=== PATIENT | female | born 1950 | race Caucasian/White ===

== ENCOUNTER 2017-01-31 13:13 | Emergency (ER) | payer OTHER ==
[~2017-01-31] VITALS: Ht 157.5 cm; Wt 89.0 kg
[~2017-01-31 13:13] MED LIST: ASPI81TA82 PO; ATOR20TA PO; CLON.1 PO; LISI-586 PO; METO50CR PO; PLAV75TA PO
[2017-01-31 13:17] VITALS: BP 226/100; PULSE 99; RESP 24; TEMP 97.9; O2SAT 96
--- NOTE | 2017-01-31 13:24 | PD ---
Physical Exam Time Seen by Provider: 13:22 Narrative 66yo F c/o elevated BP, chest pain, and SOB that started this morning. Patient seen in triage. VS reviewed. Awaiting bed placement. Data Data Last Documented VS Vital Signs Date Time Temp Pulse Resp B/P Pulse Ox O2 Delivery O2 Flow Rate FiO2 01/31/17 13:17 97.9 99 24 226/100 96 Room Air [facility] Supervised Visit with ERICK: Lucila Be January 31, 2017 13:24
[2017-01-31] MEDS ORDERED: SODIUM CHLORIDE 0.9% FLUSH 10 ML FLUSH IVF PRN (14:00)
--- NOTE | 2017-01-31 14:07 | PD ---
HPI Chief Complaint: Abdominal Pain Time Seen by Provider: 13:47 Travel History International Travel<30 days: No Contact w/Intl Traveler<30days: No Traveled to known affect area: No History of Present Illness HPI Patient 66-year-old female presents emergency primary for evaluation of epigastric pain radiating to her back and shoulder. Patient states it feels very similar to when she had her gallbladder attack. She states that her gallbladder since been removed. Endorses some nausea with one episode of nonbilious nonbloody vomiting. States symptoms been going on for the past few hours. States gradually worsening.Denies any diarrhea. Denies any true chest pain. Denies any shortness of breath to me but did endorse to the triage nurse. Denies any fevers PFSH Past Medical History Hx Anticoagulant Therapy: Yes Blood Disorders: No Cancer: No Cardiovascular Problems: Yes (HYPERTENSION) Diminished Hearing: No Endocrine: No Gastrointestinal Disorders: Yes (GERD) Genitourinary: No Hepatitis: No Hiatal Hernia: No Hypertension: Yes Immune Disorder: No Implanted Vascular Access Dvce: No Medical other: Yes (PVD) Musculoskeletal: Yes (LOWER BACK PAIN) Neurologic: No Psychiatric: No Reproductive: No Respiratory: No Immunizations Current: Yes ?: Not Past Surgical History Abdominal Surgery: Yes (APPY, CHOLY) Appendectomy: Yes Body Medical Devices: STENTS IN GROIN Cardiac Surgery: No Cholecystectomy: Yes Endocrine Surgery: No Gynecologic Surgery: Yes (TOTAL HYSTERCTOMY) Hysterectomy: Yes Neurologic Surgery: No Oral Surgery: Yes (T&A) Tonsillectomy: Yes (ADDENOIDS) Other Surgery: Yes (STENTS IN GROIN) Social History Alcohol Use: Yes (VODKA/ICE TEA DAILY) Tobacco Use: Yes Substance Use: No Allergies-Medications (Allergen,Severity, Reaction): Coded Allergies: Bactrim (Verified Allergy, Severe, Anaphylaxis, 01/31/17) Clonidine (Verified Allergy, Severe, 01/31/17) Lisinopril (Verified Allergy, Severe, Swelling, 01/31/17) Tetanus Toxoid (Verified Allergy, Severe, Swelling,RASH, 01/31/17) Uncoded Allergies: Epidural steroid injection (Adverse Reaction, Severe, Chest Pain, 11/15/15) Reported Meds & Prescriptions Reported Meds & Active Scripts Active Protonix (Pantoprazole Sodium) 20 Mg Tab 20 Mg PO DAILY Reported Hydrochlorothiazide 25 Mg Tab 25 Mg PO DAILY Metoprolol Succinate ER 24 HR (Metoprolol Succinate) 50 Mg Tab 50 Mg PO DAILY Plavix (Clopidogrel Bisulfate) 75 Mg Tab 75 Mg PO DAILY Aspirin 81 Mg Chew 81 Mg CHEW DAILY Atorvastatin (Atorvastatin Calcium) 20 Mg Tab 20 Mg PO DAILY Losartan (Losartan Potassium) 25 Mg Tab 25 Mg PO DAILY Review of Systems Except as stated in HPI: all other systems reviewed are Neg Physical Exam Narrative GENERAL: Well-developed well-nourished no apparent distress SKIN: Focused skin assessment warm/dry. HEAD: Atraumatic. Normocephalic. EYES: Pupils equal and round. No scleral icterus. No injection or drainage. ENT: No nasal bleeding or discharge. Mucous membranes pink and moist. NECK: Trachea midline. No JVD. CARDIOVASCULAR: Regular rate and rhythm. No murmur appreciated. RESPIRATORY: No accessory muscle use. Clear to auscultation. Breath sounds equal bilaterally. GASTROINTESTINAL: Abdomen soft, non-tender, nondistended. Hepatic and splenic margins not palpable. No pulsatile masses no rebound no percussive tenderness. MUSCULOSKELETAL: No obvious deformities. No clubbing. No cyanosis. No edema. NEUROLOGICAL: Awake and alert. No obvious cranial nerve deficits. Motor grossly within normal limits. Normal speech. PSYCHIATRIC: Appropriate mood and affect; insight and judgment normal. Data Data Last Documented VS Vital Signs Date Time Temp Pulse Resp B/P Pulse Ox O2 Delivery O2 Flow Rate FiO2 01/31/17 19:06 80 20 135/62 96 Room Air 01/31/17 13:17 97.9 Orders Electrocardiogram (01/31/17 ) Ckmb (Isoenzyme) Profile (01/31/17 13:55) Complete Blood Count With Diff (01/31/17 13:55) Comprehensive Metabolic Panel (01/31/17 13:55) Magnesium (Mg) (01/31/17 13:55) Prothrombin Time / Inr (Pt) (01/31/17 13:55) Act Partial Throm Time (Ptt) (01/31/17 13:55) Troponin I (01/31/17 13:55) Lipase (01/31/17 13:55) Chest, Single Ap (01/31/17 13:55) Ecg Monitoring (01/31/17 13:55) Iv Access Insert/Monitor (01/31/17 13:55) Oximetry (01/31/17 13:55) Oxygen Administration (01/31/17 13:55) Sodium Chloride 0.9% Flush (Ns Flush) (01/31/17 14:00) Ondansetron Inj (Zofran Inj) (01/31/17 14:30) Ondansetron Inj (Zofran Inj) (01/31/17 14:18) CKMB (01/31/17 13:50) CKMB% (01/31/17 13:50) Hydromorphone Pf Inj (Dilaudid Pf Inj) (01/31/17 17:45) Cta Thor Abd Aorta W Iv C W3d (01/31/17 ) Iohexol 350 Inj (Omnipaque 350 Inj) (01/31/17 18:44) Labs Laboratory Tests Test 01/31/17 13:50 White Blood Count 7.5 TH/MM3 Red Blood Count 5.19 MIL/MM3 Hemoglobin 16.1 GM/DL Hematocrit 46.2 % Mean Corpuscular Volume 88.9 FL Mean Corpuscular Hemoglobin 30.9 PG Mean Corpuscular Hemoglobin 34.7 % Concent Red Cell Distribution Width 14.5 % Platelet Count 157 TH/MM3 Mean Platelet Volume 10.0 FL Neutrophils (%) (Auto) 76.9 % Lymphocytes (%) (Auto) 14.6 % Monocytes (%) (Auto) 6.4 % Eosinophils (%) (Auto) 1.7 % Basophils (%) (Auto) 0.4 % Neutrophils # (Auto) 5.7 TH/MM3 Lymphocytes # (Auto) 1.1 TH/MM3 Monocytes # (Auto) 0.5 TH/MM3 Eosinophils # (Auto) 0.1 TH/MM3 Basophils # (Auto) 0.0 TH/MM3 CBC Comment DIFF FINAL Differential Comment Prothrombin Time 10.5 SEC Prothromb Time International 1.0 RATIO Ratio Activated Partial 31.6 SEC Thromboplast Time Sodium Level 136 MEQ/L Potassium Level 4.1 MEQ/L Chloride Level 99 MEQ/L Carbon Dioxide Level 28.5 MEQ/L Anion Gap 9 MEQ/L Blood Urea Nitrogen 11 MG/DL Creatinine 0.61 MG/DL Estimat Glomerular Filtration 98 ML/MIN Rate Random Glucose 119 MG/DL Calcium Level 9.9 MG/DL Magnesium Level 1.8 MG/DL Total Bilirubin 0.6 MG/DL Aspartate Amino Transf 30 U/L (AST/SGOT) Alanine Aminotransferase 34 U/L (ALT/SGPT) Alkaline Phosphatase 122 U/L Total Creatine Kinase 167 U/L Creatine Kinase MB 4.4 NG/ML Troponin I LESS THAN 0.02 NG/ML Total Protein 7.6 GM/DL Albumin 3.8 GM/DL Lipase 97 U/L MDM Medical Decision Making Medical Screen Exam Complete: Yes Emergency Medical Condition: Yes Interpretation(s) EKG shows normal sinus rhythm with a normal axis and normal R-wave progression. Possible LAE. Intervals within normal limits. No concerning ST T changes. This borderline EKG. Differential Diagnosis Highly atypical for ACS, dissection is a possibility, gastritis, gastric enteritis. Narrative Course Patient was roomed emergency department, she stated on arrival her pain was actually minimal and was offered pain medicine and declined. Her basic labs reviewed CBC CMP troponin EKG and chest x-ray are reassuring. Lipase was negative. During the course of the workup the patient began complaining of pain spasm moderate in nature. Differential diagnosis was expanded to include aortic dissection and kidney stones. She was sent for CAT scan of her aorta: Last 24 hours Impressions Chest X-Ray 01/31/17 1355 Signed Impressions: Service Date/Time: Tuesday, January 31, 2017 13:58 - CONCLUSION: No acute cardiopulmonary process. Wilton Pierce MD Aorta CTA 01/31/17 0000 Signed Impressions: Service Date/Time: Tuesday, January 31, 2017 18:23 - CONCLUSION: 1. No dissection or aneurysm. 2. 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 3. Wall thickening involving the antrum of the stomach without obstruction, free air, or abscess. This was suggest an acute gastritis. Peptic ulcer disease can have a similar appearance. 4. Hepatic steatosis. 5. 4 mm left lower lobe pulmonary nodule. Current guidelines suggest a repeat CT of the thorax in 12 months. 6. Prior cholecystectomy. 7. Colonic diverticulosis. Cristian Amor Jr., MD Discussed results with her. I think her symptoms are much more in line with a gastritis rather than ACS. Patient states she would rather follow up with her primary care physician and be admitted for observation. I think this is reasonable given her symptomology highly suggest another cause other than cardiac. She is feeling better after pain medicine was administered. She would like to go home. Discussed with her symptomatically management returned ED criteria. Diagnosis Primary Impression: Abdominal pain Qualified Code: R10.13 - Epigastric pain Patient Instructions: Gastritis (DC), General Instructions Med/Other Pt SpecificInfo: Prescription(s) given Scripts Pantoprazole (Protonix)20 Mg Tab20 Mg PO DAILY #30 TAB Ref 0 Prov:Yunier Gonzalez MD 01/31/17 Disposition: 01 DISCHARGE HOME Condition: Stable Yunier Gonzalez MD January 31, 2017 14:07
[2017-01-31] MEDS ORDERED: ONDANSETRON HCL 4 MG/2 ML VIAL ONE (14:18)
[2017-01-31] MEDS ORDERED: METO50TA11 PO (14:19)
[2017-01-31] MEDS ORDERED: PLAV75TA29 PO (14:19)
[2017-01-31] MEDS ORDERED: HYDR25TA5 PO (14:19)
[2017-01-31] MEDS ORDERED: ATOR20TA15 PO (14:19)
[2017-01-31] MEDS ORDERED: ASPI81CH CHEW (14:19)
[2017-01-31] MEDS ORDERED: LOSA25TA PO (14:19)
[2017-01-31 14:21] LABS: AUTOMATED NEUTROPHIL # 5.7 TH/MM3 (1.8-7.7); BASOPHIL % 0.4 % (0.0-2.0); EOSINOPHIL # 0.1 TH/MM3 (0-0.4); EOSINOPHIL % 1.7 % (0.0-4.0); HEMATOCRIT 46.2 % (35.0-46.0); HEMO FLAGS DIFF FINAL; LYMPH % 14.6 % (9.0-44.0); LYMPHOCYTE # 1.1 TH/MM3 (1.0-4.8); MEAN CELL VOLUME 88.9 FL (80.0-100.0); MEAN CORPUSCULAR HEMOGLOBIN 30.9 PG (27.0-34.0); MEAN CORPUSCULAR HGB CONC 34.7 % (32.0-36.0); MONO % 6.4 % (0.0-8.0); NEUT % 76.9 % (16.0-70.0); PLATELET COUNT 157 TH/MM3 (150-450); RED BLOOD COUNT 5.19 MIL/MM3 (4.00-5.30); RED CELL DISTRIBUTION WIDTH 14.5 % (11.6-17.2); WHITE BLOOD COUNT 7.5 TH/MM3 (4.0-11.0)
[2017-01-31 14:28] LABS: APTT (PATIENT) 31.6 SEC (24.3-30.1); PROTHROMBIN TIME - PATIENT 10.5 SEC (9.8-11.6)
[2017-01-31] MEDS ORDERED: ONDANSETRON HCL 4 MG/2 ML VIAL IV PUSH ONE (14:30)
[2017-01-31 14:34] LABS: ALT (GPT) 34 U/L (10-53); ANION GAP 9 MEQ/L (5-15); AST (GOT) 30 U/L (15-37); BICARBONATE 28.5 MEQ/L (21.0-32.0); BLOOD UREA NITROGEN 11 MG/DL (7-18); CHLORIDE 99 MEQ/L (98-107); GLOMERULAR FILTRATION RATE 98 ML/MIN (>89); MAGNESIUM 1.8 MG/DL (1.5-2.5); SODIUM (NA) 136 MEQ/L (136-145)
[2017-01-31 14:35] VITALS: BP 182/87; PULSE 93; RESP 20; O2SAT 96
[2017-01-31 14:36] LABS: POTASSIUM 4.1 MEQ/L (3.5-5.1)
--- NOTE | 2017-01-31 14:37 | RADRPT ---
EXAM DATE/TIME: 01/31/2017 13:58 [facility] COMPARISON: CHEST SINGLE AP, May 11, 2014, 20:16. INDICATIONS : Chest pain and short of breath. MEDICAL HISTORY : None. SURGICAL HISTORY : None. ENCOUNTER: Initial ACUITY: 2 days PAIN SCORE: 7/10 LOCATION: Bilateral chest FINDINGS: A single view of the chest demonstrates the lungs to be symmetrically aerated without evidence of mas s, infiltrate or effusion. The cardiomediastinal contours are unremarkable. Osseous structures are intact. CONCLUSION: No acute cardiopulmonary process. Wilton Pierce MD on January 31, 2017 at 14:34 Board Certified Radiologist. This report was verified electronically.
[2017-01-31 15:06] LABS: ALKALINE PHOSPHATASE 122 U/L (45-117); CREATINE KINASE 167 U/L (26-192); TOTAL BILIRUBIN ADULT 0.6 MG/DL (0.2-1.0)
[2017-01-31 15:18] LABS: CKMB 4.4 NG/ML (0.5-3.6)
[2017-01-31 17:23] VITALS: BP 195/88; PULSE 83; RESP 20; O2SAT 94
[2017-01-31] MEDS ORDERED: HYDROmorphone HCL PF 1 MG/ML VIAL IV PUSH ONE (17:45)
[2017-01-31] MEDS ORDERED: IOHEXOL 350 MG/ML 10 ML VIAL (for RAD DIAG) IV ONE (18:44)
--- NOTE | 2017-01-31 18:58 | RADRPT ---
EXAM DATE/TIME: 01/31/2017 18:23 [facility] COMPARISON: No previous studies available for comparison. INDICATIONS : Chest and epigastric pain. Possible dissection. IV CONTRAST: 95 cc Omnipaque 350 (iohexol) IV RADIATION DOSE: 20.86 CTDIvol (mGy) MEDICAL HISTORY : Cardiovascular disease. Hypertension. Gastroesophageal reflux disease. SURGICAL HISTORY : Appendectomy. Cholecystectomy.Hysterectomy.Femoral bypass ENCOUNTER: Initial ACUITY: 1 day PAIN SCALE: 6/10 LOCATION: chest epigastric TECHNIQUE: Volumetric scanning was performed using a multi-row detector CT scanner. The data was post processed with a variety of visualization algorithms including full volume maximum intensity projection, multi -planar sliding thin slab reformation, curved planar reformation, and surface rendering techniques. Using automated exposure control and adjustment of the mA and/or kV according to patient size, radiat ion dose was kept as low as reasonably achievable to obtain optimal diagnostic quality images. FINDINGS: Thoracic/abdominal aorta: Diffuse atherosclerotic disease most pronounced within the infrarenal aorta. No aneurysmal change or dissection. The left inflow vessels are chronically occluded. The right inflow is patent. A stent is seen involving the right common iliac artery which is patent. A right to left fem-fem bypass is paten t. The celiac, SMA, ZAK, and renal arteries are patent. Arch vessels are patent. Heart and mediastinum: Coronary artery atherosclerotic calcifications noted. The heart is normal in size. No pericardial eff usion. Pulmonary arteries normal in caliber. No adenopathy or mass. Lung parenchyma: A 4 mm monary nodules seen within the subpleural aspects of the lateral basilar segment of the left l ower lobe. It is smoothly marginated. Remaining lungs are clear. No effusions. Other structures: The gallbladder is surgically absent. A simple renal cyst involving the right lower pole. It measures 3.9 cm with Hounsfield units four. The liver is diffusely low in attenuation. A 1.5 cm oval shaped a reginaldo of low density seen involving the left lobe. No other lesions appreciated. No ductal dilatation. The stomach is decompressed and there is a suggestion of wall thickening involving the antrum. No str anding of the adjacent fat. No dilatation to suggest obstruction. Scattered colonic diverticuli witho ut acute inflammation. CONCLUSION: 1. No dissection or aneurysm. 2. 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 3. Wall thickening involving the antrum of the stomach without obstruction, free air, or abscess. Thi s was suggest an acute gastritis. Peptic ulcer disease can have a similar appearance. 4. Hepatic steatosis. 5. 4 mm left lower lobe pulmonary nodule. Current guidelines suggest a repeat CT of the thorax in 12 months. 6. Prior cholecystectomy. 7. Colonic diverticulosis. Cristian Amor Jr., MD on January 31, 2017 at 18:49 Board Certified Radiologist. This report was verified electronically.
[2017-01-31 19:06] VITALS: BP 135/62; PULSE 80; RESP 20; O2SAT 96
[2017-01-31] MEDS ORDERED: PANT20 PO (19:20)
--- NOTE | 2017-02-01 11:50 | EKG ---
Date Performed: 01/31/2017 Time Performed: 13:29:22 PTAGE: 66 years EKG: Sinus rhythm POSSIBLE LEFT ATRIAL ENLARGEMENT BORDERLINE ECG PREVIOUS TRACING : 05/12/2014 03.40 Compared to prior tracing no significant change DOCTOR: Albin Stanley Interpretating Date/Time 02/01/2017 11:48:55
== END 2017-01-31 19:38 | disposition home or self-care (01) ==
LOC: NEPC 13:13
DX: R10.13 Epigastric pain (principal); R94.31 Abnormal electrocardiogram [ECG] [EKG]; I10 Essential (primary) hypertension; I73.9 Peripheral vascular disease, unspecified; K76.0 Fatty (change of) liver, not elsewhere classified; R91.1 Solitary pulmonary nodule; Z79.01 Long term (current) use of anticoagulants; Z72.0 Tobacco use; R07.9 Chest pain, unspecified
CPT/HCPCS: 71010; 71275; 74174; 80053; 82550; 82552; 83690; 83735; 84484; 85025; 85610; 85730; 93005; 96374; 96375; 99285; J1170; J2405; Q9967